=== PATIENT | female | born 1965 | race Caucasian/White ===

== ENCOUNTER 2016-06-10 15:17 | Emergency (ER) ==
[2016-06-10 15:22] VITALS: BP 119/73; TEMP 98.5; BMI 19.7
--- NOTE | 2016-06-10 16:25 | ED.PDOC ---
General ED Provider: Dr. JOSUE JACOBO JR Chief Complaint: Wound Check Stated Complaint: patient states she had a lump removed from right breast. states they used glue to seal it and she was allergic and has been having problems since. states it will pop open at times. patient states it leaks blood and yellow liquidd.[ End ]SINCE March.5 68 20 96% 119/73 08/28. PATIENT HAS BEEN BOILING WOUND OUT WITH PEROXIDE TWICE A DAY. PATIENT HAS SMALL AMOUNT OF SEROSANGUINEOUS FLUID DRAINAGE ON BANDAIDE. WOUND IS ON TOP OF RIGHT BREAST NEAR AREOLA. APPROX 0.5CM WOUND IS SUPERFICIAL. HYSTERECTOMY, DENTAL PROCEDURES, BENEIGN TUMOR REMOVED FROM RIGHT BREAST/. [ End ]. MS FIBROMYALGIA SZ CVA Time Seen by Physician: 16:25 Mode of Arrival: Walk-In Information Source: Patient Exam Limitations: No limitations Primary Care Provider: ROSE MARIE NAGY-[facility] Nursing and Triage Documentation Reviewed and Agree: No Review of Systems - Review Of Systems Constitutional: Reports: No symptoms Eyes: Reports: No symptoms Ears, Nose, Mouth, Throat: Reports: No symptoms Respiratory: Reports: No symptoms Cardiac: Reports: No symptoms GI: Reports: No symptoms : Reports: No symptoms Musculoskeletal: Reports: No symptoms Skin: Reports: Lesions Neurological: Reports: No symptoms Endocrine: Reports: No symptoms Hematologic/Lymphatic: Reports: No symptoms All Other Systems: Other Past Medical History - Past Medical History Previously Healthy: Yes Endocrine: Reports: None Cardiovascular: Reports: None Respiratory: Reports: COPD Hematological: Reports: None Gastrointestinal: Reports: None Genitourinary: Reports: None Neuro/Psych: Reports: CVA, Seizure Musculoskeletal: Reports: None Cancer: Reports: None Last Menstrual Period: n/a Other Pertinent Past Medical History: ms fibromyalgia - Surgical History General Surgical History: Reports: Hysterectomy, Other (DENTAL PROCEDURES) - Family History Family History: Reports: Unknown - Social History Smoking Status: Current every day smoker Hx Substance Use: No Alcohol Screening: None Physical Exam - Physical Exam Appearance: Well-appearing Pain Distress: Mild Neck: Supple Respiratory: Airway patent Skin: Warm, Dry, Normal color (small open superficial area appears slighly irritated no induration no erythema) Neurological: Sensation intact, Motor intact, Reflexes intact, Cranial nerves intact, Alert, Oriented Psychiatric: Affect appropriate, Mood appropriate Critical Care Note - Critical Care Note Total Time (mins): 0 Course - Course Vital Signs: Temp Pulse Resp BP Pulse Ox 06/10/16 15:19 98.5 F 68 20 119/73 96 Departure - Departure Time of Disposition: 17:14 Disposition: HOME SELF-CARE Discharge Problem: Wound Instructions: Wound Healing and Your Diet (ED), Acute Wound Care (ED) Condition: Good Pt referred to PMD for follow-up: Yes Additional Instructions: cleanse area once a day with soap and water bandage with dry gauze twice a day should become dry and close in three to five days recheck surgeon next week if not resolved may need revision if not healing Allergies/Adverse Reactions: Allergies amitriptyline Adverse Reaction (Verified 06/10/16 15:23) aspirin Adverse Reaction (Verified 06/10/16 15:23) ciprofloxacin [From Cipro] Adverse Reaction (Verified 06/10/16 15:23) ciprofloxacin HCl [From Cipro] Adverse Reaction (Verified 06/10/16 15:23) clarithromycin Adverse Reaction (Verified 06/10/16 15:23) escitalopram oxalate [From Lexapro] Adverse Reaction (Verified 06/10/16 15:23) fluoxetine HCl [From Prozac] Adverse Reaction (Verified 06/10/16 15:23) hydromorphone [From Dilaudid] Adverse Reaction (Verified 06/10/16 15:23) ketorolac tromethamine [From Toradol] Adverse Reaction (Verified 06/10/16 15:23) latex Adverse Reaction (Verified 06/10/16 15:23) milnacipran HCl [From Savella] Adverse Reaction (Verified 06/10/16 15:23) paroxetine HCl [From Paxil] Adverse Reaction (Verified 06/10/16 15:23) Penicillins Adverse Reaction (Verified 06/10/16 15:23) promethazine HCl [From Phenergan] Adverse Reaction (Verified 06/10/16 15:23) pseudoephedrine HCl [From Actifed] Adverse Reaction (Verified 06/10/16 15:23) quetiapine fumarate [From Seroquel] Adverse Reaction (Verified 06/10/16 15:23) rofecoxib [From Vioxx] Adverse Reaction (Verified 06/10/16 15:23) sertraline HCl [From Zoloft] Adverse Reaction (Verified 06/10/16 15:23) sumatriptan [From Imitrex] Adverse Reaction (Verified 06/10/16 15:23) sumatriptan succinate [From Imitrex] Adverse Reaction (Verified 06/10/16 15:23) triprolidine HCl [From Actifed] Adverse Reaction (Verified 06/10/16 15:23) amitriptyline Adverse Reaction (Uncoded 06/10/16 15:23) aspirin Adverse Reaction (Uncoded 06/10/16 15:23) ciprofloxacin Adverse Reaction (Uncoded 06/10/16 15:23) ciprofloxacin HCl Adverse Reaction (Uncoded 06/10/16 15:23) clarithromycin Adverse Reaction (Uncoded 06/10/16 15:23) escitalopram oxalate Adverse Reaction (Uncoded 06/10/16 15:23) fluoxetine HCl Adverse Reaction (Uncoded 06/10/16 15:23) ketorolac tromethamine Adverse Reaction (Uncoded 06/10/16 15:23) latex Adverse Reaction (Uncoded 06/10/16 15:23) milnacipran HCl Adverse Reaction (Uncoded 06/10/16 15:23) paroxetine HCl Adverse Reaction (Uncoded 06/10/16 15:23) Penicillins Adverse Reaction (Uncoded 06/10/16 15:23) promethazine HCl Adverse Reaction (Uncoded 06/10/16 15:23) pseudoephedrine HCl Adverse Reaction (Uncoded 06/10/16 15:23) quetiapine fumarate Adverse Reaction (Uncoded 06/10/16 15:23) rofecoxib Adverse Reaction (Uncoded 06/10/16 15:23) sertraline HCl Adverse Reaction (Uncoded 06/10/16 15:23) sumatriptan Adverse Reaction (Uncoded 06/10/16 15:23) sumatriptan succinate Adverse Reaction (Uncoded 06/10/16 15:23) triprolidine HCl Adverse Reaction (Uncoded 06/10/16 15:23)
== END 2016-06-10 18:01 | disposition home or self-care (01) ==
LOC: ED 15:17
DX: T81.31XA Disruption of external operation (surgical) wound, not elsewhere classified, initial encounter (principal); F17.210 Nicotine dependence, cigarettes, uncomplicated
CPT/HCPCS: 99282

== ENCOUNTER 2016-08-18 11:20 | Outpatient (CLI) ==
[2016-08-18 11:33] LABS: BASOPHILS % (AUTO) 0.5 % (0.0-3.0); EOSINOPHILS # (AUTO) 0.1 K/ul (0.0-0.7); EOSINOPHILS % (AUTO) 0.8 % (0.0-7.0); HEMATOCRIT 43.2 % (37.0-47.0); HEMOGLOBIN 15.1 g/dl (12.0-16.0); IMMATURE GRANULOCYTE % (AUTO) 0.2 % (0.0-5.0); LYMPHOCYTES # (AUTO) 2.6 K/uL (0.60-3.4); LYMPHOCYTES % (AUTO) 44.4 (10.0-50.0); MEAN CORPUSCULAR HEMOGLOBIN 32.4 pg (27.0-31.0); MEAN CORPUSCULAR VOLUME 92.7 fl (81.0-99.0); MONOCYTES # (AUTO) 0.3 K/uL (0.4-2.0); MONOCYTES % (AUTO) 5.3 (0-10); NEUTROPHILS # (AUTO) 2.9 K/ul (2.0-6.9); NEUTROPHILS % (AUTO) 48.8; PLATELET COUNT 177 10^3/uL (140-440); RED BLOOD COUNT 4.66 10^6/ul (4.20-5.40)
[2016-08-18 11:44] LABS: PROTHROMBIN TIME 9.9 SEC (9.3-11.0)
[2016-08-18 11:54] LABS: ALBUMIN 4.1 g/dL (3.4-5.0); ALBUMIN/GLOBULIN RATIO 1.41; ANION GAP 11.8; BILIRUBIN,TOTAL 0.42 mg/dL (0.00-1.20); BUN/CREATININE RATIO 13.92; CALCIUM 9.6 mg/dL (8.2-10.2); CREATININE 0.79 mg/dL (0.60-1.30); POTASSIUM 3.8 mmol/L (3.5-5.10)
--- NOTE | 2016-08-18 12:22 | DI ---
EXAM: Three views of the right wrist HISTORY: Right wrist pain. COMPARISON: Right hand x-rays same day FINDINGS: There is no cortical irregularity or displaced fracture of the right wrist. Radiocarpal j oint is normal. The carpal bones are normal. The metacarpals are unremarkable. The scaphoid is un remarkable in appearance. There is no lytic or blastic lesion. The soft tissues are normal. IMPRESSION: No acute abnormality to account for patient's symptoms.
--- NOTE | 2016-08-18 12:25 | DI ---
EXAM: Radiographs, right hand HISTORY: Right wrist pain. COMPARISON: None available. TECHNIQUE: Three views. FINDINGS: Bone mineralization is normal. There is no fracture or dislocation. The joint spaces ar e maintained. No focal soft tissue abnormality is seen. IMPRESSION: No abnormality of the right hand.
== END 2016-08-18 11:21 | disposition home or self-care (01) ==
LOC: LAB 11:20
PROVIDERS: ATTEND Nurse Practitioner Family
DX: S60.221A Contusion of right hand, initial encounter (principal); M25.531 Pain in right wrist; F41.9 Anxiety disorder, unspecified; J44.9 Chronic obstructive pulmonary disease, unspecified
CPT/HCPCS: 36415; 80053; 85025; 85610

== ENCOUNTER 2016-09-23 13:38 | Emergency (ER) ==
[2016-09-23 13:43] VITALS: BP 108/74; TEMP 98.8
[2016-09-23] MEDS ORDERED: SODIUM CHLORIDE 1,000 ML IV STA (13:54)
[2016-09-23 14:02] LABS: BASOPHILS % (AUTO) 0.2 % (0.0-3.0); EOSINOPHILS # (AUTO) 0.1 K/ul (0.0-0.7); EOSINOPHILS % (AUTO) 0.8 % (0.0-7.0); HEMATOCRIT 40.4 % (37.0-47.0); HEMOGLOBIN 13.9 g/dl (12.0-16.0); IMMATURE GRANULOCYTE % (AUTO) 0.3 % (0.0-5.0); LYMPHOCYTES # (AUTO) 2.5 K/uL (0.60-3.4); LYMPHOCYTES % (AUTO) 39.2 (10.0-50.0); MEAN CORPUSCULAR HEMOGLOBIN 31.8 pg (27.0-31.0); MEAN CORPUSCULAR HGB CONC 34.4 (31.8-35.4); MEAN CORPUSCULAR VOLUME 92.4 fl (81.0-99.0); MONOCYTES # (AUTO) 0.5 K/uL (0.4-2.0); MONOCYTES % (AUTO) 7.4 (0-10); NEUTROPHILS # (AUTO) 3.4 K/ul (2.0-6.9); NEUTROPHILS % (AUTO) 52.1; PLATELET COUNT 175 10^3/uL (140-440); RED BLOOD COUNT 4.37 10^6/ul (4.20-5.40); WHITE BLOOD COUNT 6.46 K/ul (4.6-10.2)
[2016-09-23 14:28] LABS: ALBUMIN 3.6 g/dL (3.4-5.0); ALBUMIN/GLOBULIN RATIO 1.38; ANION GAP 13.7; BILIRUBIN,TOTAL 0.29 mg/dL (0.00-1.20); BUN/CREATININE RATIO 18.42; CALCIUM 9.1 mg/dL (8.2-10.2); CREATININE 0.76 mg/dL (0.60-1.30); POTASSIUM 3.7 mmol/L (3.5-5.10); TOTAL PROTEIN 6.2 g/dL (6.4-8.2)
[2016-09-23 15:28] LABS: BILIRUBIN,URINE Negative (NEGATIVE); KETONES,URINE Negative (NEGATIVE); LEUKOCYTE ESTERASE ,URINE Negative (NEGATIVE); NITRITE,URINE Negative (NEGATIVE); PROTEIN,URINE Negative (NEGATIVE); URINE, BLOOD Negative (NEGATIVE)
[2016-09-23 15:29] LABS: ADD URINE MICROSCOPIC NO
--- NOTE | 2016-09-23 15:57 | CT ---
EXAM: CT Abdomen with contrast. CT Pelvis with contrast. HISTORY: Diffuse abdominal pain. Nausea and vomiting. COMPARISON: 08/26/2014. TECHNIQUE: Multiple axial images of the abdomen and pelvis were obtained following intravenous admi nistration of 75 mL of Omnipaque 350, low osmolar. Images were reformatted in the coronal plane. FINDINGS: The lung bases are clear. No acute osseous abnormality identified. The liver, gallbladder, pancreas, spleen, adrenal glands, and kidneys are without acute abnormality. There is mild fluid distension of multiple small bowel loops without bowel wall thickening or transi tion point. Colon is normal in caliber. The appendix is normal. Uterus is absent. Urinary bladde r is unremarkable. No free fluid, free air or lymphadenopathy identified. Mild atherosclerotic torrie cifications are present. IMPRESSION: Enteritis.
--- NOTE | 2016-09-23 16:19 | ED.PDOC ---
General ED Provider: Dr. STACY FELIPE Chief Complaint: Abdominal Pain Stated Complaint: abdominal pain diarrhea Time Seen by Physician: 13:39 (seen with araceli willard and PA student ) Mode of Arrival: Walk-In Information Source: Patient Exam Limitations: No limitations Primary Care Provider: ROSE MARIE NAGY-[facility] Nursing and Triage Documentation Reviewed and Agree: Yes GI Complaint Exam - Abdominal Pain Complaint/Exam Onset: Gradual Duration: 3 DAYS Symptoms Are: Still present Timing: Intermittent Initial Severity: Moderate Current Severity: Mild Location of Pain: Diffuse Character: Reports: Cramping Aggravating: Reports: None Alleviating: Reports: None Associated Signs and Symptoms: Reports: Diarrhea. Denies: Diaphoresis, Fever, Cough, Chest pain, Dizziness, Back pain, Constipation, Blood in stool, Dysuria, Urinary frequency, Decreased urine output, Decreased appetite, Vaginal bleeding , Vaginal discharge, Nausea, Vomiting, Sore throat, Decreased activity AAA Risk Factors: Reports: None Cardiac Risk Factors: Reports: None Ectopic Risk Factors: Reports: None Ovarian Torsion Risk Factors: Reports: None Surgical Obstruction Risk Factors: Reports: None Related Surgical History: Reports: None Patient Rh Status: Unknown Quality Indicators for Cardiac Chest Pain: EKG in 10min. Quality Indicator For Non-Traumatic Chest Pain/Syncope: EKG Performed Review of Systems - Review Of Systems Constitutional: Reports: No symptoms Eyes: Reports: No symptoms Ears, Nose, Mouth, Throat: Reports: No symptoms Respiratory: Reports: No symptoms Cardiac: Reports: No symptoms GI: Reports: Abdominal pain, Diarrhea : Reports: No symptoms Musculoskeletal: Reports: No symptoms Skin: Reports: No symptoms Neurological: Reports: No symptoms Endocrine: Reports: No symptoms Hematologic/Lymphatic: Reports: No symptoms All Other Systems: Reviewed and Negative Past Medical History - Past Medical History Previously Healthy: Yes Endocrine: Reports: None Cardiovascular: Reports: None Respiratory: Reports: COPD Hematological: Reports: None Gastrointestinal: Reports: None Genitourinary: Reports: None Neuro/Psych: Reports: CVA, Seizure Musculoskeletal: Reports: None Cancer: Reports: None Last Menstrual Period: 2009 Other Pertinent Past Medical History: ms fibromyalgia - Surgical History General Surgical History: Reports: Hysterectomy, Other (DENTAL PROCEDURES) - Family History Family History: Reports: Unknown - Social History Smoking Status: Current every day smoker Hx Substance Use: No Alcohol Screening: None - Immunizations Tetanus Shot up to Date: Yes Physical Exam - Physical Exam Appearance: Well-appearing, No pain distress, Well-nourished Eyes: AMANDA, EOMI, Conjunctiva clear ENT: Ears normal, Nose normal, Oropharynx normal Respiratory: Airway patent, Breath sounds clear, Breath sounds equal, Respirations nonlabored Cardiovascular: RRR, Pulses normal, No rub, No murmur GI/: Soft, Nontender, No masses, Bowel sounds normal, No Organomegaly Musculoskeletal: Normal strength, ROM intact, No edema, No calf tenderness Skin: Warm, Dry, Normal color Neurological: Sensation intact, Motor intact, Reflexes intact, Cranial nerves intact, Alert, Oriented Psychiatric: Affect appropriate, Mood appropriate Interpretation - Radiology Interpretation Radiology Interpretation By: Radiologist Radiology Results: No acute changes Critical Care Note - Critical Care Note Total Time (mins): 0 Course - Course Hematology/Chemistry: 09/23/16 14:00 09/23/16 14:00 Orders, Labs, Meds: Lab Review 09/23/16 09/23/16 14:00 14:30 WBC 6.46 RBC 4.37 Hgb 13.9 Hct 40.4 MCV 92.4 MCH 31.8 H MCHC 34.4 RDW Coeff of Maribel 13.3 Plt Count 175 Immature Gran % (Auto) 0.3 Neut % (Auto) 52.1 Lymph % (Auto) 39.2 [place] % (Auto) 7.4 Eos % (Auto) 0.8 Baso % (Auto) 0.2 Immature Gran # (Auto) 0.0 Neut # 3.4 Lymph # 2.5 [place] # 0.5 Eos # 0.1 Baso # 0.0 Sodium 140 Potassium 3.7 Chloride 108 H Carbon Dioxide 22 Anion Gap 13.7 BUN 14 Creatinine 0.76 Estimated GFR (MDRD) 80.00 BUN/Creatinine Ratio 18.42 Glucose 77 Calcium 9.1 Total Bilirubin 0.29 AST 16 ALT 13 Alkaline Phosphatase 74 Total Protein 6.2 L Albumin 3.6 Globulin 2.6 Albumin/Globulin Ratio 1.38 Amylase 82 Lipase 23 Urine Color Yellow Urine Clarity Clear Urine pH 7.0 Ur Specific Eddy 1.020 Urine Protein Negative Urine Glucose (UA) Negative Urine Ketones Negative Urine Blood Negative Urine Nitrite Negative Urine Bilirubin Negative Urine Urobilinogen 1.0 Ur Leukocyte Esterase Negative Orders Category Date Time Status EKG-(ED ONLY) Stat CARDIO 09/23/16 13:55 Completed NPO REMINDER: IMAGING ONCE CARE 09/23/16 13:53 Completed ED IV/MEDIPORT/POWERPORT .ONCE EMERGENCY 09/23/16 13:53 Active AMYLASE Stat LAB 09/23/16 14:00 Completed CBC W/ AUTO DIFF Stat LAB 09/23/16 14:00 Completed COMPREHENSIVE METABOLIC PANEL Stat LAB 09/23/16 14:00 Completed LIPASE Stat LAB 09/23/16 14:00 Completed URINALYSIS C & S IF INDICATED Stat LAB 09/23/16 14:30 Completed 0.9 % Sodium Chloride [Saline Flush] MEDS 09/23/16 13:53 Active 1 syr IVF PRN PRN Sodium Chloride 0.9% [Sodium Chloride] 1,000 ml MEDS 09/23/16 13:[address] ABDOMEN/PELVIS W CONTRAST Stat RADS 09/23/16 13:51 Completed Medications Generic Name Dose Route Start Last Admin Trade Name Freq PRN Reason Stop Dose Admin Sodium Chloride 1 syr 09/23/16 13:53 Saline Flush IVF PRN PRN To flush IV Discontinued Medications Generic Name Dose Route Start Last Admin Trade Name Freq PRN Reason Stop Dose Admin Sodium Chloride 1,000 mls @ 1,000 mls/hr 09/23/16 13:54 Sodium Chloride IV 09/23/16 14:53 BOLUS STA Vital Signs: Temp Pulse Resp BP Pulse Ox 09/23/16 13:38 98.8 F 83 20 108/74 93 L Departure - Departure Time of Disposition: 16:19 (SEEN WITH ENTIRE STAFF AT ALL TIMES ) Disposition: HOME SELF-CARE Discharge Problem: Abdominal pain Instructions: Acute Abdominal Pain (ED), Gas and Bloating (ED) Condition: Good Pt referred to PMD for follow-up: Yes Allergies/Adverse Reactions: Allergies amitriptyline Adverse Reaction (Verified 06/10/16 15:23) aspirin Adverse Reaction (Verified 06/10/16 15:23) ciprofloxacin [From Cipro] Adverse Reaction (Verified 06/10/16 15:23) ciprofloxacin HCl [From Cipro] Adverse Reaction (Verified 06/10/16 15:23) clarithromycin Adverse Reaction (Verified 06/10/16 15:23) escitalopram oxalate [From Lexapro] Adverse Reaction (Verified 06/10/16 15:23) fluoxetine HCl [From Prozac] Adverse Reaction (Verified 06/10/16 15:23) hydromorphone [From Dilaudid] Adverse Reaction (Verified 06/10/16 15:23) ketorolac tromethamine [From Toradol] Adverse Reaction (Verified 06/10/16 15:23) latex Adverse Reaction (Verified 06/10/16 15:23) milnacipran HCl [From Savella] Adverse Reaction (Verified 06/10/16 15:23) paroxetine HCl [From Paxil] Adverse Reaction (Verified 06/10/16 15:23) Penicillins Adverse Reaction (Verified 06/10/16 15:23) promethazine HCl [From Phenergan] Adverse Reaction (Verified 06/10/16 15:23) pseudoephedrine HCl [From Actifed] Adverse Reaction (Verified 06/10/16 15:23) quetiapine fumarate [From Seroquel] Adverse Reaction (Verified 06/10/16 15:23) rofecoxib [From Vioxx] Adverse Reaction (Verified 06/10/16 15:23) sertraline HCl [From Zoloft] Adverse Reaction (Verified 06/10/16 15:23) sumatriptan [From Imitrex] Adverse Reaction (Verified 06/10/16 15:23) sumatriptan succinate [From Imitrex] Adverse Reaction (Verified 06/10/16 15:23) triprolidine HCl [From Actifed] Adverse Reaction (Verified 06/10/16 15:23) amitriptyline Adverse Reaction (Uncoded 06/10/16 15:23) aspirin Adverse Reaction (Uncoded 06/10/16 15:23) ciprofloxacin Adverse Reaction (Uncoded 06/10/16 15:23) ciprofloxacin HCl Adverse Reaction (Uncoded 06/10/16 15:23) clarithromycin Adverse Reaction (Uncoded 06/10/16 15:23) escitalopram oxalate Adverse Reaction (Uncoded 06/10/16 15:23) fluoxetine HCl Adverse Reaction (Uncoded 06/10/16 15:23) ketorolac tromethamine Adverse Reaction (Uncoded 06/10/16 15:23) latex Adverse Reaction (Uncoded 06/10/16 15:23) milnacipran HCl Adverse Reaction (Uncoded 06/10/16 15:23) paroxetine HCl Adverse Reaction (Uncoded 06/10/16 15:23) Penicillins Adverse Reaction (Uncoded 06/10/16 15:23) promethazine HCl Adverse Reaction (Uncoded 06/10/16 15:23) pseudoephedrine HCl Adverse Reaction (Uncoded 06/10/16 15:23) quetiapine fumarate Adverse Reaction (Uncoded 06/10/16 15:23) rofecoxib Adverse Reaction (Uncoded 06/10/16 15:23) sertraline HCl Adverse Reaction (Uncoded 06/10/16 15:23) sumatriptan Adverse Reaction (Uncoded 06/10/16 15:23) sumatriptan succinate Adverse Reaction (Uncoded 06/10/16 15:23) triprolidine HCl Adverse Reaction (Uncoded 06/10/16 15:23) Home Medications: Ambulatory Orders Hydrocodone/Acetaminophen [[place] 5-325 Tablet] 1 each PO BID 08/18/16
== END 2016-09-23 16:36 | disposition home or self-care (01) ==
LOC: ED 13:38
DX: R10.84 Generalized abdominal pain (principal); R19.7 Diarrhea, unspecified; M79.7 Fibromyalgia; G35 Multiple sclerosis; F17.210 Nicotine dependence, cigarettes, uncomplicated
CPT/HCPCS: 36415; 80053; 81001; 82150; 83690; 85025; 93005; 93010; 96360; 99283

== ENCOUNTER 2016-11-30 16:01 | Outpatient (CLI) | payer OTHER ==
[2016-11-30 16:08] LABS: BASOPHILS % (AUTO) 0.3 % (0.0-3.0); EOSINOPHILS # (AUTO) 0.1 K/ul (0.0-0.7); EOSINOPHILS % (AUTO) 1.1 % (0.0-7.0); HEMATOCRIT 42.4 % (37.0-47.0); HEMOGLOBIN 14.6 g/dl (12.0-16.0); IMMATURE GRANULOCYTE % (AUTO) 0.3 % (0.0-5.0); LYMPHOCYTES # (AUTO) 2.3 K/uL (0.60-3.4); LYMPHOCYTES % (AUTO) 37.4 (10.0-50.0); MEAN CORPUSCULAR HEMOGLOBIN 32.2 pg (27.0-31.0); MEAN CORPUSCULAR HGB CONC 34.4 (31.8-35.4); MEAN CORPUSCULAR VOLUME 93.6 fl (81.0-99.0); MONOCYTES # (AUTO) 0.4 K/uL (0.4-2.0); NEUTROPHILS # (AUTO) 3.4 K/ul (2.0-6.9); NEUTROPHILS % (AUTO) 54.9; PLATELET COUNT 184 10^3/uL (140-440); RED BLOOD COUNT 4.53 10^6/ul (4.20-5.40); WHITE BLOOD COUNT 6.12 K/ul (4.6-10.2)
[2016-11-30 16:20] LABS: H. PYLORI ANTIBODY POSITIVE (NEGATIVE); H.PYLORI INTERNAL QC INTERNAL QC VALID
[2016-11-30 16:25] LABS: BILIRUBIN,URINE Negative (NEGATIVE); KETONES,URINE Negative (NEGATIVE); LEUKOCYTE ESTERASE ,URINE Negative (NEGATIVE); NITRITE,URINE Negative (NEGATIVE); PROTEIN,URINE Negative (NEGATIVE); URINE, BLOOD Trace-intact (NEGATIVE)
[2016-11-30 16:27] LABS: ADD URINE MICROSCOPIC YES
[2016-11-30 16:37] LABS: ALBUMIN/GLOBULIN RATIO 1.21; ANION GAP 12.1; BILIRUBIN,TOTAL 0.32 mg/dL (0.00-1.20); BUN/CREATININE RATIO 12.12; CALCIUM 9.8 mg/dL (8.2-10.2); CREATININE 0.99 mg/dL (0.60-1.30); POTASSIUM 4.1 mmol/L (3.5-5.10); TOTAL PROTEIN 7.3 g/dL (6.4-8.2)
[2016-11-30 16:55] LABS: BACTERIA,URINE TRACE (NOT PRESENT)
== END 2016-11-30 16:02 | disposition home or self-care (01) ==
LOC: LAB 16:01
PROVIDERS: ATTEND Nurse Practitioner Family
DX: R10.84 Generalized abdominal pain (principal)
CPT/HCPCS: 36415; 80053; 81001; 82150; 83690; 85025; 86677

== ENCOUNTER 2016-12-18 18:28 | Emergency (ER) | payer OTHER ==
[2016-12-18 18:32] VITALS: BP 123/82; TEMP 98.2; BMI 17.9
--- NOTE | 2016-12-18 18:32 | ED.PDOC ---
General ED Provider: Dr. LELIA CARRASQUILLO Chief Complaint: Eye Problem Stated Complaint: Burned a rubber band tied to a flipflop, the band flamed straight up into her left eye, causing immediate pain and photophobia. iced eye and washed it out with OTC eyewash repeatedly. Time Seen by Physician: 18:35 Mode of Arrival: Walk-In Information Source: Patient Exam Limitations: No limitations [facility] Documentation Reviewed and Agree: Yes EENT Complaint Exam - Eye Complaint/Exam Onset/Duration: 1130 Symptoms Are: Still present Timing: Constant Initial Severity: Severe Current Severity: Severe Location: Discreet, Left Character: Reports: Sharp Aggravating: Reports: Light, Blinking Alleviating: Reports: Darkness (less painful but still painful) Associated Signs and Symptoms: Reports: Photophobia Related History: Reports: Drops used (OTC eyewash) Eye Surgical History: Reports: None Penetrating Injury Risk Factors: None Globe Rupture Risk Factors: None Acute Glaucoma Risk Factors: None Optic Artery Occlusion Risk Factors: None Extraocular Movement: Normal Orbit Findings: Normal Globe Findings: Intact Lid Findings: Normal Conjunctival Findings: Red (mild erythema medially. Lids and lashes everted. Fluoroscein uptake of most medial portion of upper eyelid revealed abrasion or burn of mucosa) Corneal Findings: Clear Fluorescein Uptake: Yes (1/2 cm thin line on left cornea in lower medial portion. No evidence of FB.) Fundi: Normal Slit Lamp Used: No Differential Diagnoses: Corneal Abrasion, Other (left upper eyelid mucosal burn) Review of Systems - Review Of Systems Constitutional: Reports: No symptoms Eyes: Reports: Pain (in left eye), Photophobia Skin: Reports: No symptoms Neurological: Reports: No symptoms All Other Systems: Reviewed and Negative Past Medical History - Past Medical History Previously Healthy: Yes Endocrine: Reports: None Cardiovascular: Reports: None Respiratory: Reports: COPD Hematological: Reports: None Gastrointestinal: Reports: None Genitourinary: Reports: None Neuro/Psych: Reports: CVA, Seizure Musculoskeletal: Reports: None Cancer: Reports: None Other Pertinent Past Medical History: ms fibromyalgia - Surgical History General Surgical History: Reports: Hysterectomy, Other (DENTAL PROCEDURES) - Family History Family History: Reports: Unknown - Social History Smoking Status: Current every day smoker Hx Substance Use: No Alcohol Screening: None Physical Exam - Physical Exam Appearance: Well-appearing, Well-nourished Ill-appearing: None Pain Distress: Moderate Eyes: AMANDA, EOMI, Conjunctiva inflammed (mildly inflamed medially, fluoroscein revealed small corneal abrasion) Skin: Warm, Dry, Normal color Neurological: Sensation intact, Motor intact, Reflexes intact, Cranial nerves intact, Alert, Oriented Psychiatric: Affect appropriate, Mood appropriate Critical Care Note - Critical Care Note Total Time (mins): 0 Departure - Departure Time of Disposition: 19:20 Disposition: HOME SELF-CARE Discharge Problem: Corneal abrasion, left Qualifiers: Encounter type: initial encounter Qualified Code(s): S05.02XA - Injury of conjunctiva and corneal abrasion without foreign body, left eye, initial encounter Instructions: Corneal Abrasion (ED) Condition: Good Pt referred to PMD for follow-up: No Additional Instructions: Avoid light exposure to the eye Allergies/Adverse Reactions: Allergies amitriptyline Adverse Reaction (Verified 12/18/16 18:33) aspirin Adverse Reaction (Verified 12/18/16 18:33) ciprofloxacin [From Cipro] Adverse Reaction (Verified 12/18/16 18:33) ciprofloxacin HCl [From Cipro] Adverse Reaction (Verified 12/18/16 18:33) clarithromycin Adverse Reaction (Verified 12/18/16 18:33) escitalopram oxalate [From Lexapro] Adverse Reaction (Verified 12/18/16 18:33) fluoxetine HCl [From Prozac] Adverse Reaction (Verified 12/18/16 18:33) hydromorphone [From Dilaudid] Adverse Reaction (Verified 12/18/16 18:33) ketorolac tromethamine [From Toradol] Adverse Reaction (Verified 12/18/16 18:33) latex Adverse Reaction (Verified 12/18/16 18:33) milnacipran HCl [From Savella] Adverse Reaction (Verified 12/18/16 18:33) paroxetine HCl [From Paxil] Adverse Reaction (Verified 12/18/16 18:33) Penicillins Adverse Reaction (Verified 12/18/16 18:33) promethazine HCl [From Phenergan] Adverse Reaction (Verified 12/18/16 18:33) pseudoephedrine HCl [From Actifed] Adverse Reaction (Verified 12/18/16 18:33) quetiapine fumarate [From Seroquel] Adverse Reaction (Verified 12/18/16 18:33) rofecoxib [From Vioxx] Adverse Reaction (Verified 12/18/16 18:33) sertraline HCl [From Zoloft] Adverse Reaction (Verified 12/18/16 18:33) sumatriptan [From Imitrex] Adverse Reaction (Verified 12/18/16 18:33) sumatriptan succinate [From Imitrex] Adverse Reaction (Verified 12/18/16 18:33) triprolidine HCl [From Actifed] Adverse Reaction (Verified 12/18/16 18:33) amitriptyline Adverse Reaction (Uncoded 12/18/16 18:33) aspirin Adverse Reaction (Uncoded 12/18/16 18:33) ciprofloxacin Adverse Reaction (Uncoded 12/18/16 18:33) ciprofloxacin HCl Adverse Reaction (Uncoded 12/18/16 18:33) clarithromycin Adverse Reaction (Uncoded 12/18/16 18:33) escitalopram oxalate Adverse Reaction (Uncoded 12/18/16 18:33) fluoxetine HCl Adverse Reaction (Uncoded 12/18/16 18:33) ketorolac tromethamine Adverse Reaction (Uncoded 12/18/16 18:33) latex Adverse Reaction (Uncoded 12/18/16 18:33) milnacipran HCl Adverse Reaction (Uncoded 12/18/16 18:33) paroxetine HCl Adverse Reaction (Uncoded 12/18/16 18:33) Penicillins Adverse Reaction (Uncoded 12/18/16 18:33) promethazine HCl Adverse Reaction (Uncoded 12/18/16 18:33) pseudoephedrine HCl Adverse Reaction (Uncoded 12/18/16 18:33) quetiapine fumarate Adverse Reaction (Uncoded 12/18/16 18:33) rofecoxib Adverse Reaction (Uncoded 12/18/16 18:33) sertraline HCl Adverse Reaction (Uncoded 12/18/16 18:33) sumatriptan Adverse Reaction (Uncoded 12/18/16 18:33) sumatriptan succinate Adverse Reaction (Uncoded 12/18/16 18:33) triprolidine HCl Adverse Reaction (Uncoded 12/18/16 18:33) Home Medications: Ambulatory Orders Hydrocodone/Acetaminophen [[place] 5-325 Tablet] 1 each PO BID 08/18/16 Disposition Discussed With: Patient
[2016-12-18] MEDS ORDERED: FLUORETS OP ONE (18:39)
[2016-12-18] MEDS ORDERED: EYE-STREAM OP ONE (18:39)
[2016-12-18] MEDS ORDERED: TETRACAINE 0.5% UNIT-DOSE OP ONE (18:39)
[2016-12-18] MEDS ORDERED: GENTAK OPTH SOL OP STA (19:13)
== END 2016-12-18 19:25 | disposition home or self-care (01) ==
LOC: ED 18:28
DX: S05.02XA Injury of conjunctiva and corneal abrasion without foreign body, left eye, initial encounter (principal); F17.210 Nicotine dependence, cigarettes, uncomplicated; X08.8XXA Exposure to other specified smoke, fire and flames, initial encounter
CPT/HCPCS: 99282

== ENCOUNTER 2017-05-03 14:07 | Outpatient (CLI) ==
--- NOTE | 2017-05-03 16:16 | CT ---
EXAM: CT ABDOMEN AND PELVIS HISTORY: Abdominal distension, upper abdominal pain TECHNIQUE: CT abdomen and pelvis without intravenous contrast. Images were reconstructed using 3 mm section thickness. Reformations were prepared. COMPARISON: 04/26/2016 FINDINGS: Diagnostic limitations exist without including contrast enhanced images. No focal hepatic or splenic lesions. The gallbladder, pancreas and adrenal glands appear normal. Punctate 2 mm calcification i n the left kidney may represent a renal stone versus vascular calcification. No hydronephrosis, liana nephric fat stranding or evidence of ureteral obstruction. Mild atherosclerotic disease of the aorta . Stomach appears normal. Normal appendix. Normal bowel gas pattern. No uterus is identified. Urina ry bladder is normal. No ascites or inflammatory infiltration of the abdominal fat. No ventral abdominal wall hernia. Bones are within normal limits. Lung bases are clear. No pneumop eritoneum. IMPRESSION: 1. Normal bowel gas pattern. 2. Post cholecystectomy state. 3. Tiny calcification in the left kidney possibly a stone versus vascular calcification. No hydrone phrosis.
== END 2017-05-03 14:08 | disposition home or self-care (01) ==
LOC: RAD 14:07
PROVIDERS: ATTEND Nurse Practitioner Family
DX: R14.0 Abdominal distension (gaseous) (principal); R10.84 Generalized abdominal pain
CPT/HCPCS: 36415; 80053; 82150; 83690; 85025; 86677

== ENCOUNTER 2017-05-31 09:47 | Outpatient (CLI) ==
--- NOTE | 2017-05-31 11:15 | CT ---
EXAM: CT of the head without contrast History: Dizziness. Comparison: Head CT 07/09/2014 Technique: Multiplanar CT images through the head were obtained without the administration of IV con trast Findings: The visualized paranasal sinuses and mastoid air cells are clear in general. No acute torrie varial abnormalities. Intracranially the ventricular and cisternal spaces are normal in size, shape and configuration for a patient of this age. No dominant mass or midline shift. No hydrocephalous. No acute intracranial hemorrhage or abnormal extraaxial fluid collections. Impression: No acute intracranial process. No change compared to prior study.
--- NOTE | 2017-05-31 11:19 | DI ---
EXAM: Two views of the chest. History: Cough. Comparison: Chest CT 02/25/2016 Findings: Heart size is normal. No focal consolidation. No appreciable pleural fluid and no pneumo thorax. No acute osseous abnormalities. Mild diffuse bronchial wall thickening. Impression: Diffuse bronchial wall thickening with no focal pneumonia.
== END 2017-05-31 09:48 | disposition home or self-care (01) ==
LOC: RAD 09:47
PROVIDERS: ATTEND Nurse Practitioner Family
DX: F41.9 Anxiety disorder, unspecified (principal); R42 Dizziness and giddiness; R51 Headache; E75.6 Lipid storage disorder, unspecified; R05 Cough; K58.9 Irritable bowel syndrome, unspecified; R11.0 Nausea; R14.0 Abdominal distension (gaseous); F17.200 Nicotine dependence, unspecified, uncomplicated
CPT/HCPCS: 36415; 80053; 80061; 85025; 93005; 93010

== ENCOUNTER 2017-06-09 09:58 | Outpatient (CLI) ==
--- NOTE | 2017-06-09 11:34 | DI ---
EXAM: Chest, 2 views. HISTORY: cough COMPARISON: 05/31/2017 FINDING/IMPRESSION: Cardiomediastinal contours appear stable. Basilar interstitial opacitis may rel ate to atelectasis or pneumonitis. There is no focal pulmonary consolidation. No pleural effusion o r pneumothorax.
== END 2017-06-09 09:59 | disposition home or self-care (01) ==
LOC: LAB 09:58
PROVIDERS: ATTEND Nurse Practitioner Family
DX: K21.9 Gastro-esophageal reflux disease without esophagitis (principal); K58.9 Irritable bowel syndrome, unspecified; D64.9 Anemia, unspecified; R05 Cough
CPT/HCPCS: 36415; 82607; 82728; 83540; 83550; 84466; 85045; 86677

== ENCOUNTER 2017-07-18 16:20 | Outpatient (CLI) | END 2017-07-18 16:21 | disposition home or self-care (01) | LOC: FCC-LAB 16:20 | PROVIDERS: ATTEND Nurse Practitioner Family | DX: R11.0 Nausea (principal); R14.0 Abdominal distension (gaseous); Z86.19 Personal history of other infectious and parasitic diseases; Z20.2 Contact with and (suspected) exposure to infections with a predominantly sexual mode of transmission; Z79.899 Other long term (current) drug therapy | CPT/HCPCS: 36415; 80053; 80074; 81001; 86592; 86631; 86695; 86696; 87389; 87800 ==

== ENCOUNTER 2017-07-21 13:28 | Outpatient (CLI) | payer OTHER ==
--- NOTE | 2017-07-21 14:43 | US ---
EXAM: Ultrasound Transvaginal Non-obstetrical. HISTORY: Pelvic and perineal pain. Previous hysterectomy and bilateral oophorectomy. COMPARISON: CT 05/03/2017. TECHNIQUE: Schulz scale and color doppler images with transvaginal probe. FINDINGS: Uterus and ovaries are not seen. No localized abnormalities seen at the vaginal cuff. No pelvic flu id collections identified. IMPRESSION: No pelvic mass identified. Consider pelvic MRI if symptoms persist.
== END 2017-07-21 13:29 | disposition home or self-care (01) ==
LOC: RAD 13:28
PROVIDERS: ATTEND Nurse Practitioner Family
DX: R10.2 Pelvic and perineal pain (principal); Z20.2 Contact with and (suspected) exposure to infections with a predominantly sexual mode of transmission

== ENCOUNTER 2017-08-12 13:10 | Outpatient (CLI) | payer OTHER | END 2017-08-12 13:11 | disposition home or self-care (01) | LOC: FCC-LAB 13:10 | PROVIDERS: ATTEND Nurse Practitioner Family | DX: R14.0 Abdominal distension (gaseous) (principal); F41.9 Anxiety disorder, unspecified; Z72.0 Tobacco use | CPT/HCPCS: 36415; 80048; 85025; 86677 ==

== ENCOUNTER 2018-01-29 10:13 | Emergency (ER) | payer OTHER ==
[2018-01-29 10:19] VITALS: BP 135/89; TEMP 98.2; BMI 23.3
--- NOTE | 2018-01-29 10:23 | ED.PDOC ---
General ED Provider: Dr. ADOLFO GIBSON Chief Complaint: Rash Stated Complaint: Bad Rash. Hetal medrano has rash all over body. States onset after helping clean mobile home her daughter was moving into. In addition has a new puppy that was removed from "bad home"--pt and friend and daughter all home same rash--used otc meds without relief--states unable to sleep and itches all the time. Very anxious, scratching continously. Time Seen by Physician: 10:23 Mode of Arrival: Walk-In Information Source: Patient Exam Limitations: Clinical condition Primary Care Provider: MIRELLA ASHTON Nursing and Triage Documentation Reviewed and Agree: Yes Does patient meet sepsis criteria?: No System Inflammatory Response Syndrome: Not Applicable Sepsis Protocol: For patient's 13 years and over: Temp is 96.8 and below OR 101 and greater Pulse >90 BPM Resp >20/minute Acutely Altered Mental Status Are patient's symptoms suggestive of a new infection, such as: -Pneumonia -Skin, Soft Tissue -Endocarditis -UTI -Bone, Joint Infection -Implantable Device -Acute Abdominal Infection -Wound Infection -Meningitis -Blood Stream Catheter Infection -Unknown Skin Complaint Exam - Skin Rash/Itching Complaint/Exam Symptoms Are: Still present Initial Severity: Moderate Current Severity: Moderate Location: generalized Potential Exposures: Reports: Plants, Pet exposure, Mites, Scabies Aggravating: Reports: Showering, Heat, Clothing Alleviating: Reports: None Associated Signs and Symptoms: Denies: Difficulty breathing, Fever, Chills Related History: Similar episode Skin Findings: Present: Maculae, Dry scaly skin, Lesions, Calvin tracts Differential Diagnoses: Allergic Reaction, Contact Dermatitis, Eczema, Scabies Review of Systems - Review Of Systems Constitutional: Reports: Chills Eyes: Reports: No symptoms Ears, Nose, Mouth, Throat: Reports: No symptoms Respiratory: Reports: No symptoms Cardiac: Reports: No symptoms GI: Reports: No symptoms : Reports: No symptoms Musculoskeletal: Reports: No symptoms Skin: Reports: Dryness, Lesions, Rash Neurological: Reports: Anxiety Endocrine: Reports: No symptoms Hematologic/Lymphatic: Reports: No symptoms All Other Systems: Reviewed and Negative Past Medical History - Past Medical History Previously Healthy: Yes Endocrine: Reports: None Cardiovascular: Reports: None Respiratory: Reports: COPD Hematological: Reports: None Gastrointestinal: Reports: None Genitourinary: Reports: None Neuro/Psych: Reports: CVA, Seizure Musculoskeletal: Reports: None Cancer: Reports: None Last Menstrual Period: hysterectomy Other Pertinent Past Medical History: ms fibromyalgia - Surgical History General Surgical History: Reports: Hysterectomy, Other (DENTAL PROCEDURES) - Family History Family History: Reports: Unknown - Social History Smoking Status: Current every day smoker, Light tobacco smoker Hx Substance Use: No Alcohol Screening: None Physical Exam - Physical Exam Appearance: Well-appearing Ill-appearing: None Pain Distress: Mild Eyes: AMANDA, EOMI, Conjunctiva clear ENT: Ears normal, Nose normal, Oropharynx normal Neck: Supple Respiratory: Airway patent, Breath sounds clear, Breath sounds equal, Respirations nonlabored Cardiovascular: RRR, Pulses normal, No rub, No murmur GI/: Soft, Nontender, No masses, Bowel sounds normal, No Organomegaly Musculoskeletal: Normal strength, ROM intact, No edema, No calf tenderness Skin: Warm, Dry, Normal color Neurological: Sensation intact, Motor intact, Reflexes intact, Cranial nerves intact, Alert, Oriented Critical Care Note - Critical Care Note Total Time (mins): 0 Course - Course Hematology/Chemistry: 01/29/18 11:10 01/29/18 11:10 Orders, Labs, Meds: Lab Review 01/29/18 01/29/18 01/29/18 11:10 11:10 11:10 WBC 6.53 RBC 4.49 Hgb 14.2 Hct 40.9 MCV 91.1 MCH 31.6 H MCHC 34.7 RDW Coeff of Maribel 13.2 Plt Count 189 Immature Gran % (Auto) 0.5 Neut % (Auto) 37.8 Lymph % (Auto) 51.6 H Parmer % (Auto) 8.1 Eos % (Auto) 1.5 Baso % (Auto) 0.5 Immature Gran # (Auto) 0.0 Neut # (Auto) 2.5 Lymph # (Auto) 3.4 Parmer # (Auto) 0.5 Eos # (Auto) 0.1 Baso # (Auto) 0.0 Sodium 136.6 L Potassium 3.49 L Chloride 105.6 Carbon Dioxide 28.6 Anion Gap 5.89 BUN 10.7 Creatinine 0.75 Estimated GFR (MDRD) 81.00 BUN/Creatinine Ratio 14.26 Glucose 84.6 Calcium 9.22 Total Bilirubin 0.37 AST 16.5 ALT 17.5 Alkaline Phosphatase 62.2 Total Protein 6.44 Albumin 3.87 Globulin 2.57 Albumin/Globulin Ratio 1.50 Urine Color Urine Clarity Urine pH Ur Specific [place] Urine Protein Urine Glucose (UA) Urine Ketones Urine Blood Urine Nitrite Urine Bilirubin Urine Urobilinogen Ur Leukocyte Esterase Urine Opiates Screen Negative Ur Oxycodone Screen Negative Urine Methadone Screen Negative Ur Propoxyphene Screen Negative Ur Barbiturates Screen Negative U Tricyclic Antidepress Negative Ur Phencyclidine Scrn Negative Ur Amphetamine Screen Negative U Methamphetamines Scrn Negative U Benzodiazepines Scrn Negative Urine Cocaine Screen Negative U Cannabinoids Screen Negative 01/29/18 11:10 WBC RBC Hgb Hct MCV MCH MCHC RDW Coeff of Maribel Plt Count Immature Gran % (Auto) Neut % (Auto) Lymph % (Auto) Parmer % (Auto) Eos % (Auto) Baso % (Auto) Immature Gran # (Auto) Neut # (Auto) Lymph # (Auto) Parmer # (Auto) Eos # (Auto) Baso # (Auto) Sodium Potassium Chloride Carbon Dioxide Anion Gap BUN Creatinine Estimated GFR (MDRD) BUN/Creatinine Ratio Glucose Calcium Total Bilirubin AST ALT Alkaline Phosphatase Total Protein Albumin Globulin Albumin/Globulin Ratio Urine Color Yellow Urine Clarity Clear Urine pH 6.0 Ur Specific [place] 1.020 Urine Protein Negative Urine Glucose (UA) Negative Urine Ketones Negative Urine Blood Negative Urine Nitrite Negative Urine Bilirubin Negative Urine Urobilinogen 0.2 Ur Leukocyte Esterase Negative Urine Opiates Screen Ur Oxycodone Screen Urine Methadone Screen Ur Propoxyphene Screen Ur Barbiturates Screen U Tricyclic Antidepress Ur Phencyclidine Scrn Ur Amphetamine Screen U Methamphetamines Scrn U Benzodiazepines Scrn Urine Cocaine Screen U Cannabinoids Screen Orders Category Date Time Status CBC W/ AUTO DIFF Stat LAB 01/29/18 11:10 Completed COMPREHENSIVE METABOLIC PANEL Stat LAB 01/29/18 11:10 Completed UA [URINALYSIS C & S IF INDICATED] Stat LAB 01/29/18 11:10 Completed URINE DRUG SCREEN (RAPID FOR ED) [DRUG SCREEN, URINE, LAB 01/29/18 11:10 Completed RAPID] Stat Hydroxyzine HCl [Vistaril Inj] MEDS 01/29/18 12:26 Discontinued 25 mg IM ONCE STA Medications Discontinued Medications Generic Name Dose Route Start Last Admin Trade Name Freq PRN Reason Stop Dose Admin Hydroxyzine HCl 25 mg 01/29/18 12:26 01/29/18 12:39 Vistaril Inj IM 01/29/18 12:27 25 mg ONCE STA Administration Vital Signs: Temp Pulse Resp BP Pulse Ox 01/29/18 10:13 98.2 F 81 16 135/89 96 Departure - Departure Time of Disposition: 12:40 Disposition: HOME SELF-CARE Discharge Problem: Itching, Rash and nonspecific skin eruption Instructions: Itchy Skin (ED), Dermatitis (ED) Condition: Fair Pt referred to PMD for follow-up: Yes (1 week ) IPMP verified?: No Additional Instructions: Take Benadry 25 mg every 4-6 hrs for relief of itchingU Use Anti itch cream as directed Follow up with PCP and consider Dermatology consultation Prescriptions: Diphenhydramine HCl 25 mg PO Q6HR PRN #20 capsule PRN Reason: Itching Allergies/Adverse Reactions: Allergies gabapentin Allergy (Intermediate, Verified 01/29/18 10:22) Unknown levofloxacin [From Levaquin] Allergy (Verified 01/29/18 10:22) Anaphylaxis amitriptyline Adverse Reaction (Verified 01/29/18 10:22) aspirin Adverse Reaction (Verified 01/29/18 10:22) ciprofloxacin [From Cipro] Adverse Reaction (Verified 01/29/18 10:22) ciprofloxacin HCl [From Cipro] Adverse Reaction (Verified 01/29/18 10:22) clarithromycin Adverse Reaction (Verified 01/29/18 10:22) escitalopram oxalate [From Lexapro] Adverse Reaction (Verified 01/29/18 10:22) fluoxetine HCl [From Prozac] Adverse Reaction (Verified 01/29/18 10:22) hydromorphone [From Dilaudid] Adverse Reaction (Verified 01/29/18 10:22) ketorolac tromethamine [From Toradol] Adverse Reaction (Verified 01/29/18 10:22) latex Adverse Reaction (Verified 01/29/18 10:22) milnacipran HCl [From Savella] Adverse Reaction (Verified 01/29/18 10:22) paroxetine HCl [From Paxil] Adverse Reaction (Verified 01/29/18 10:22) Penicillins Adverse Reaction (Verified 01/29/18 10:22) promethazine HCl [From Phenergan] Adverse Reaction (Verified 01/29/18 10:22) pseudoephedrine HCl [From Actifed] Adverse Reaction (Verified 01/29/18 10:22) quetiapine fumarate [From Seroquel] Adverse Reaction (Verified 01/29/18 10:22) rofecoxib [From Vioxx] Adverse Reaction (Verified 01/29/18 10:22) sertraline HCl [From Zoloft] Adverse Reaction (Verified 01/29/18 10:22) sumatriptan [From Imitrex] Adverse Reaction (Verified 01/29/18 10:22) sumatriptan succinate [From Imitrex] Adverse Reaction (Verified 01/29/18 10:22) triprolidine HCl [From Actifed] Adverse Reaction (Verified 01/29/18 10:22) amitriptyline Adverse Reaction (Uncoded 12/18/16 18:33) aspirin Adverse Reaction (Uncoded 12/18/16 18:33) ciprofloxacin Adverse Reaction (Uncoded 12/18/16 18:33) ciprofloxacin HCl Adverse Reaction (Uncoded 12/18/16 18:33) clarithromycin Adverse Reaction (Uncoded 12/18/16 18:33) escitalopram oxalate Adverse Reaction (Uncoded 12/18/16 18:33) fluoxetine HCl Adverse Reaction (Uncoded 12/18/16 18:33) ketorolac tromethamine Adverse Reaction (Uncoded 12/18/16 18:33) latex Adverse Reaction (Uncoded 12/18/16 18:33) milnacipran HCl Adverse Reaction (Uncoded 12/18/16 18:33) paroxetine HCl Adverse Reaction (Uncoded 12/18/16 18:33) Penicillins Adverse Reaction (Uncoded 12/18/16 18:33) promethazine HCl Adverse Reaction (Uncoded 12/18/16 18:33) pseudoephedrine HCl Adverse Reaction (Uncoded 12/18/16 18:33) quetiapine fumarate Adverse Reaction (Uncoded 12/18/16 18:33) rofecoxib Adverse Reaction (Uncoded 12/18/16 18:33) sertraline HCl Adverse Reaction (Uncoded 12/18/16 18:33) sumatriptan Adverse Reaction (Uncoded 12/18/16 18:33) sumatriptan succinate Adverse Reaction (Uncoded 12/18/16 18:33) triprolidine HCl Adverse Reaction (Uncoded 12/18/16 18:33) Home Medications: Ambulatory Orders Hydrocodone/Acetaminophen [[place] 5-325 Tablet] 1 each PO BID 08/18/16 Cyclobenzaprine HCl 10 mg PO PRN PRN 05/03/17 Diphenhydramine HCl 25 mg PO Q6HR PRN #20 capsule 01/29/18 Disposition Discussed With: Patient
[2018-01-29] MEDS ORDERED: VISTARIL INJ IM STA (12:26)
== END 2018-01-29 13:05 | disposition home or self-care (01) ==
LOC: ED 10:13
DX: R21 Rash and other nonspecific skin eruption (principal); L29.9 Pruritus, unspecified; F17.210 Nicotine dependence, cigarettes, uncomplicated
CPT/HCPCS: 36415; 80053; 80306; 81001; 85025; 96372; 99282

== ENCOUNTER 2018-09-01 14:30 | Outpatient (CLI) ==
--- NOTE | 2018-09-01 15:28 | US ---
EXAM: Right lower extremity venous Doppler History: Right leg pain. Technique: Multiple sonographic images through the right lower extremity were obtained. Color duple x Doppler was used to interrogate vascular flow. Findings: The right common femoral, greater saphenous, profunda, superficial femoral, popliteal, per matamoros, posterior tibial and anterior tibial veins demonstrate spontaneous flow with normal compressio n and normal augmentation. Impression: No sonographic evidence for deep venous thrombosis
== END 2018-09-01 14:31 | disposition home or self-care (01) ==
LOC: RAD 14:30
PROVIDERS: ATTEND Nurse Practitioner Family
DX: M79.604 Pain in right leg (principal); M79.10 Myalgia, unspecified site; R10.9 Unspecified abdominal pain; R11.11 Vomiting without nausea; R14.0 Abdominal distension (gaseous)
CPT/HCPCS: 36415; 80053; 84443; 85025; 86677

== ENCOUNTER 2018-09-07 10:07 | Outpatient (CLI) ==
--- NOTE | 2018-09-07 12:24 | CT ---
EXAM: CT of the abdomen pelvis without contrast History: Abdominal pain. Comparison: CT abdomen pelvis 05/03/2017 Technique: Multiplanar CT images through the abdomen pelvis were obtained without the administration of IV contrast Findings: Lung bases are free of consolidation. No acute osseous abnormalities. Status post cholecystectomy. 1 mm calculus within the inferior pole of the left kidney. No right re nal calculi. No hydronephrosis. No ureteral calculi. No focal liver or splenic lesions. No peripa ncreatic inflammation. Adrenal glands are unremarkable. No bowel obstruction. The appendix is norm al. No free air and no ascites. No bladder wall thickening. No perirectal inflammation. No abdomi nal aortic aneurysm. Scattered colonic stool. There is prominent submucosal fat deposition within t he haile of the colon suggesting prior episodes of inflammation. There is no evidence for acute coli tis. Mild colonic diverticulosis. Impression: No acute intra-abdominal or pelvic process
--- NOTE | 2018-09-07 12:36 | CT ---
EXAM: CT of the soft tissue neck without contrast History: Cervicalgia. Technique: Multiplanar CT images through the soft tissue neck were obtained without the administrati on of IV contrast Findings: There is mild bronchial wall thickening seen within the upper lungs and mild ground-glass i nfiltrates are seen within the right upper lobe. Biapical lung scarring. No acute fracture or subluxation of the cervical spine. No prevertebral soft tissue swelling. Prede ntal space is not widened. Disc space heights are preserved within the cervical spine. No significa nt bony central canal stenosis and no significant bony neural foraminal narrowing. Orbits are intact. Visualized intracranial contents demonstrate no acute findings. The parotid glan ds and submandibular glands are within normal limits. No peritonsillar inflammation. No thyroid nod ules are identified by CT. No pathologically enlarged lymph nodes. Scattered osseous lucencies are seen within the cervical vertebral bodies. Impression: 1. No acute or significant findings seen within the soft tissue neck. 2. No significant degenerative changes of the cervical spine. Scattered osseous lucencies are seen within the cervical vertebral bodies. The possibility of multiple myeloma cannot be excluded. Recom mend further evaluation with cervical spine MRI with and without contrast.
== END 2018-09-07 10:08 | disposition home or self-care (01) ==
LOC: RAD 10:07
PROVIDERS: ATTEND Nurse Practitioner Family
DX: M54.2 Cervicalgia (principal); M25.511 Pain in right shoulder; R20.0 Anesthesia of skin; R10.9 Unspecified abdominal pain; R11.11 Vomiting without nausea; R14.0 Abdominal distension (gaseous)

== ENCOUNTER 2018-09-13 10:11 | Outpatient (CLI) | payer OTHER ==
--- NOTE | 2018-09-14 00:39 | MRI ---
EXAM: Cervical spine MRI with and without contrast. HISTORY: Neck pain and right shoulder pain. COMPARISON: Soft tissue neck CT 09/07/2018 and cervical spine radiographs 05/08/2010. TECHNIQUE: Multiplanar, multisequence MR images were acquired of the cervical spine before and after administration of 10 ml Omniscan intravenous contrast. FINDINGS: The craniocervical junction is normal and the cervical cord has no abnormal T2 hyperintens ities. The cervical vertebra are normal in height, AP alignment and intrinsic bone marrow signal. A benign intraosseous hemangioma is present at C7 and a few perineural cysts are present in the lower cervical and upper thoracic spine. There is desiccation of the cervical intervertebral discs and the re is minor irregular concavity of the C2 and C3 inferior endplates. There are no paravertebral mass es. There is mild mucosal thickening and a small amount of fluid in a minor number of the inferior r ight mastoid air cells. Focal mucosal thickening is present in the sphenoid sinus. Visualized lung apices are clear. C2-3: The intervertebral disc is normal. There is bony ridging at the posterior longitudinal ligame nt insertion. C3-4: There is a mild disc bulge and bony ridging of the posterior longitudinal ligament insertion wh ich mildly effaces the ventral thecal sac without central canal stenosis. There is mild left facet a rthropathy with a small degenerative cyst along the lateral margin of the left facet joint. There is no central canal stenosis or foraminal stenosis. C4-5: The intervertebral disc is normal. C5-6: There is a mild disc bulge without central canal stenosis and mild right foraminal stenosis C6-7: There is a mild posterior disc bulge with endplate osteophytes and a small to moderate bilobed central and left paracentral disc extrusion that extends slightly above and below the disc level. T his effaces the left anterior subarachnoid space and may encroach on the ventral left C7 nerve root. Left uncovertebral hypertrophy is present and there is moderately severe left neural foraminal steno sis and mild right foraminal stenosis. C7-T1: There is a minor disc bulge without central canal stenosis or foraminal stenosis. IMPRESSION: 1. Mild cervical degenerative spondylosis without spinal stenosis. 2. Small to moderate bilobed central and left paracentral disc extrusion C6-7. 3. Moderately severe left C6-7 neural foraminal stenosis.
== END 2018-09-13 10:12 | disposition home or self-care (01) ==
LOC: RAD 10:11
PROVIDERS: ATTEND Nurse Practitioner Family
DX: R93.89 Abnormal findings on diagnostic imaging of other specified body structures (principal); M89.9 Disorder of bone, unspecified

== ENCOUNTER 2018-11-28 10:58 | Outpatient (CLI) | END 2018-11-28 10:59 | disposition home or self-care (01) | LOC: LAB 10:58 | PROVIDERS: ATTEND Nurse Practitioner Family | DX: R05 Cough (principal) | CPT/HCPCS: 87502; 87651 ==